=== PATIENT | male | born 1975 | race Caucasian/White ===

== ENCOUNTER 2018-12-07 11:05 | Emergency (ER) | payer SELFPAY ==
[~2018-12-07] VITALS: Ht 175.3 cm; Wt 102.3 kg
[2018-12-07 11:10] VITALS: Ht 175.3 cm; Wt 102.3 kg
[2018-12-07] MEDS ORDERED: CYCLOBENZAPRINE10 MG PO (11:13)
[2018-12-07] MEDS ORDERED: ZYPREXA10 MG (11:13)
[2018-12-07] MEDS ORDERED: NEURONTIN600 MG PO (11:14)
[2018-12-07] MEDS ORDERED: ZOFRAN4 MG PO (11:14)
[2018-12-07] MEDS ORDERED: ROBAXIN500 MG PO (11:59)
[2018-12-07] MEDS ORDERED: PREDNISONE20 MG PO (11:59)
[2018-12-07 12:15] VITALS: BP 146/94
== END 2018-12-07 12:30 | disposition home or self-care (01) ==
LOC: D.ER 11:05
DX: M79.605 Pain in left leg (principal); M79.604 Pain in right leg; M79.18 Myalgia, other site; W18.30XA Fall on same level, unspecified, initial encounter; Y93.89 Activity, other specified; Y92.89 Other specified places as the place of occurrence of the external cause